=== PATIENT | female | born 1970 | race African-American/Black ===

== ENCOUNTER 2016-09-08 01:01 | Emergency (ER) | payer OTHER ==
[~2016-09-08] VITALS: Ht 160 cm; Wt 83.9 kg
[2016-09-08] MEDS ORDERED: HYDROCODONE BIT1 T11 PO (02:54)
[2016-09-08] MEDS ORDERED: Motrin,Rufen800 MG PO (02:54)
== END 2016-09-08 03:26 | disposition home or self-care (01) ==
LOC: ED 01:01
DX: S00.03XA Contusion of scalp, initial encounter (principal); S60.222A Contusion of left hand, initial encounter; S60.221A Contusion of right hand, initial encounter; S70.311A Abrasion, right thigh, initial encounter; F17.200 Nicotine dependence, unspecified, uncomplicated; Z91.013 Allergy to seafood; Y04.8XXA Assault by other bodily force, initial encounter; Y93.9 Activity, unspecified; Y92.89 Other specified places as the place of occurrence of the external cause; Y99.9 Unspecified external cause status